=== PATIENT | female | born 1960 | race Caucasian/White ===

== ENCOUNTER 2019-06-20 22:41 | Emergency (ER) | payer MEDICARE ==
[~2019-06-20] VITALS: Ht 154.9 cm; Wt 63.5 kg
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
[2019-06-20] MEDS ORDERED: CARBAMAZEPINE 200 MG TABLET PO ONE (23:30)
[2019-06-20] MEDS ORDERED: CARBAMAZEPINE 200 MG TABLET ONE (23:35)
--- NOTE | 2019-06-20 23:36 | NUR ---
PT TO CT ON JESSICA
--- NOTE | 2019-06-21 00:15 | NUR ---
Patient discharged to home in stable condition. Written and verbal after care instructions given. Patient verbalizes understanding of instruction. Pt ambulatory with a steady gait
[2019-06-21 00:16] VITALS: BP 103/56
== END 2019-06-21 00:17 | disposition home or self-care (01) ==
LOC: ER 22:49
DX: G50.0 Trigeminal neuralgia (principal); G62.9 Polyneuropathy, unspecified; I10 Essential (primary) hypertension; M79.7 Fibromyalgia; Z98.890 Other specified postprocedural states; Z88.2 Allergy status to sulfonamides
CPT/HCPCS: 70450-TC